=== PATIENT | male | born 1995 ===

== ENCOUNTER 2020-03-19 01:54 | Emergency (ER) | payer MEDICAID, OTHER ==
[2020-03-19] MEDS ORDERED: Diphtheria,Pertussis(Acell),Tetanus Vaccine 0.5 ML Syringe IM ONE (02:19)
[2020-03-19] MEDS ORDERED: ceFAZolin 2 GM in Premix Bag 1 BAG IV STA (02:20)
[2020-03-19] MEDS ORDERED: HYDROmorphone 0.5 MG/0.5 ML Syringe IVPUSH ONE ×3 (02:21→06:52)
--- NOTE | 2020-03-19 02:28 | EDM.PDOC ---
ED HPI GENERAL MEDICAL PROBLEM - General Chief Complaint: Trauma Stated Complaint: RUN OVER BY BULL HEAD INJURY AND MISSING A FINGER Time Seen by Provider: 03/19/20 02:04 Source of Information: Reports: Patient History Limitations: Reports: No Limitations - History of Present Illness INITIAL COMMENTS - FREE TEXT/NARRATIVE: A trauma alert was called for this patient. Mr. Yost is a very pleasant 24-year-old man with no chronic medical problems and no past surgical history, who now presents the ED after being struck and injured by a bull around 00:30. 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 He was not on the bull at the time. He states that he was told that he was knocked unconscious for "not that long". He has an amputation to most of his right 5th finger. He denies any other injuries. The patient states that after his injury, he drank up to half of a fifth of fireball whiskey. He also acknowledges smoking marijuana on a near-daily basis. He denies post injury nausea or vomiting, denies any report of having seizure- like activity. He is not on an anticoagulant. Here in the ED, the patient's initial BP is found to be modestly elevated at 156/97, with a tachycardia of 103 bpm. He is afebrile, saturating 100% on room air. Other than tonight's injuries, the patient denies having a recent fever, chills, sore throat, ear pain, nasal or sinus congestion, cough, dyspnea, chest pain, palpitations, nausea, vomiting, constipation, diarrhea, abdominal pain, urinary symptoms, recent weight gain or weight loss, recent bloody bowel movements or black bowel movements, recent joint aches, headaches, or rashes. The patient does not have a PCP. He does not believe that he has ever had a tetanus vaccination, but agreed to receive one here today. Right Finger-Little Pain Score (Numeric/FACES): 5 - Related Data Allergies Allergy/AdvReac Type Severity Reaction Status Date / Time No Known Allergies Allergy Verified 03/19/20 02:11 Past Medical History - Past Health History Medical/Surgical History: Denies Medical/Surgical History Social & Family History - Tobacco Use Smoking Status *Q: Current Every Day Smoker Years of Tobacco use: 5 Packs/Tins Daily: 0.4 - Alcohol Use Alcohol Use History: Yes Alcohol Use Frequency: Socially - Recreational Drug Use Recreational Drug Use: Yes Drug Use in Last 12 Months: Yes Recreational Drug Type: Reports: Marijuana/Hashish (smokes near-daily) - Living Situation & Occupation Living situation: Reports: Single, with Family Occupation: Employed ([employer] + [employer]) Review of Systems - Review of Systems Review Of Systems: Comprehensive ROS is negative, except as noted in HPI. ED EXAM, GENERAL - Physical Exam Exam: See Below Exam Limited By: No Limitations General Appearance: Alert, WD/WN, No Apparent Distress Eye Exam: Bilateral Eye: EOMI, Normal Inspection, PERRL Ears: Normal External Exam, Normal Canal, Hearing Grossly Normal, Normal TMs Nose: Normal Inspection, Normal Mucosa, No Blood Throat/Mouth: Normal Inspection, Normal Lips, Normal Teeth, Normal Gums, Normal Oropharynx, Normal Voice, No Airway Compromise Head: Normocephalic, Other (Large hematoma/swelling over the left forehead) Neck: Normal Inspection, Supple, Non-Tender, Full Range of Motion Respiratory/Chest: No Respiratory Distress, Lungs Clear, Normal Breath Sounds, No Accessory Muscle Use, Chest Non-Tender Cardiovascular: Normal Peripheral Pulses, Regular Rate, Rhythm, No Edema, No Gallop, No JVD, No Murmur, No Rub Peripheral Pulses: 3+: Radial (L), Radial (R) GI/Abdominal: Normal Bowel Sounds, Soft, Non-Tender, No Organomegaly, No Distention, No Abnormal Bruit, No Mass Back Exam: Normal Inspection, Full Range of Motion, NT Extremities: No Pedal Edema, Normal Capillary Refill, Other (There is an approximately 2 cm jagged laceration to the ulnar aspect of the proximal phalange of the right 4th finger. The patient is flexing the finger, and there may be a deformity to the proximal 4th phalange. Normal sensation to the right 4th finger. The right 5th finger is amputated at the PIP joint, with the articular surface of the proximal phalange clearly visible. The wounds to both fingers are bleeding.) Neurological: Alert, Oriented, CN II-XII Intact, Normal Cognition, No Motor/Sensory Deficits Psychiatric: Normal Affect Skin Exam: Warm, Dry, Intact, Normal Color, No Rash Course - Vital Signs Last Recorded V/S: Last Vital Signs Temp 36.6 C 03/19/20 02:44 Pulse 95 03/19/20 02:44 Resp 18 03/19/20 02:44 BP 152/99 H 03/19/20 02:44 Pulse Ox 100 03/19/20 02:44 - Orders/Labs/Meds Orders: Active Orders 24 hr Category Date Time Status Hand Comp Min 3V Rt [CR] Stat Exams 03/19/20 02:18 Taken Head wo Cont [CT] Stat Exams 03/19/20 02:18 Taken Labs: Laboratory Tests 03/19/20 Range/Units 06:40 SARS-CoV-2 RNA (JUSTIN) Negative (NEGATIVE) Meds: Medications Discontinued Medications Generic Name Dose Route Start Last Admin Trade Name Freq PRN Reason Stop Dose Admin Bupivacaine HCl 10 ml 03/19/20 06:32 Sensorcaine-Mpf 0.5% INJECT 03/19/20 06:33 ONETIME ONE Diphtheria/Tetanus/Acell Pertussis 0.5 ml 03/19/20 02:19 03/19/20 02:38 Adacel IM 03/19/20 02:20 0.5 ml .ONCE ONE Administration Hydromorphone HCl 0.5 mg 03/19/20 02:21 03/19/20 02:38 Dilaudid IVPUSH 03/19/20 02:22 0.5 mg ONETIME ONE Administration Hydromorphone HCl 0.5 mg 03/19/20 03:58 03/19/20 04:36 Dilaudid IVPUSH 03/19/20 03:59 0.5 mg ONETIME ONE Administration Hydromorphone HCl 0.5 mg 03/19/20 06:52 03/19/20 07:14 Dilaudid IVPUSH 03/19/20 06:53 0.5 mg ONETIME ONE Administration Cefazolin Sodium/Dextrose 2 gm 50 mls @ 100 mls/hr 03/19/20 02:20 03/19/20 02:40 / Premix IV 03/19/20 02:49 100 mls/hr ONETIME STA Administration Lidocaine HCl 10 ml 03/19/20 06:32 Xylocaine 1% INJECT 03/19/20 06:33 ONETIME ONE - Re-Assessments/Exams Free Text/Narrative Re-Assessment/Exam: 03/19/20 02:22 As above, the patient was struck by a bull earlier tonight, sustaining a head injury and brief loss of consciousness. His neurologic examination is normal, however, based on the mechanism, I believe he meets NICE criterion for an emergency CT of the head without contrast. He also has a laceration and possible deformity to his right 4th finger, and an amputation of his right 5th finger at the PIP joint. I have ordered x-rays of the right hand to evaluate. No other apparent injuries. I have ordered 2 g of IV Ancef and IV Dilaudid, along with a tetanus vaccination. 03/19/20 03:46 CT of the head without contrast is read by [facility] as: 1. Left frontal scalp and left preseptal hematoma. 2. No acute intracranial abnormality. 3-view radiographs of the right hand are read by the read as "Amputation through the proximal interphalangeal joint of the left 5th finger. Case discussed with Reina at [facility] at 03:10. Case then discussed with Dr. Mccullough, Orthopedic Surgeon at [facility], at 03:15. He recommended that we transfer the patient to their ED. Case then discussed with Dr. Tristan, Emergency Physician at [facility], at 03:15. He accepted the patient for transfer to their ED, but requested that I suture the laceration to the right 4th finger before I transfer the patient. 03/19/20 03:58 CT and x-ray results, and my conversations with the Orthopedic Surgeon and Emergency Physician discussed the patient. Unfortunately, we are extremely busy in the ED this morning, and it will be some time before I can suture his finger. We will transfer him after that. The patient is agreeable. 03/19/20 04:52 CT of the head and right hand x-ray images have been pushed to [facility]. 03/19/20 06:34 The patient informs me that he will get to [facility] by private vehicle. The swab for the SARS-CoV-2 virus has not yet been collected. 03/19/20 06:40 I went to suture the laceration on the ulnar aspect of the patient's right 4th finger, and the patient asked me why I was sewing that, instead of the Surgeon in [place]. I explained that the Emergency Physician at [place] requested that I suture that wound prior to transfer. The patient stated that he refused, that he would prefer to have the suturing of his right 4th finger laceration as well as repair of his right 5th finger amputation performed at the same time with one anesthesia, instead of 2 separate procedures. That being the case, I will prepare the patient for transfer by private vehicle. His wounds will be dressed with Xeroform. He will be instructed to go directly to the [facility] ED, and remain NPO. 03/19/20 07:56 The patient's swab for the SARS-CoV-2 virus has returned negative. 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 Work-up in the ER included a CT scan of your head and x-rays of your right hand. The CT scan of your head found soft tissue swelling, but no intracranial injury. The x-rays of your right hand confirmed an amputation of part of your right pinky finger, but no broken bones. You are to go directly to the emergency room at [facility]. You are not to stop along the way or eat anything. Sepsis Event Note (ED) - Evaluation Sepsis Screening Result: No Definite Risk - Focused Exam Vital Signs: Vital Signs Temp Pulse Resp BP Pulse Ox 03/19/20 02:44 36.6 C 95 18 152/99 H 100 03/19/20 02:05 36.8 C 103 H 20 156/97 H 100 - My Orders Last 24 Hours: My Active Orders 03/19/20 02:18 Hand Comp Min 3V Rt [CR] Stat Head wo Cont [CT] Stat - Assessment/Plan Last 24 Hours: My Active Orders 03/19/20 02:18 Hand Comp Min 3V Rt [CR] Stat Head wo Cont [CT] Stat
[2020-03-19] MEDS ORDERED: Bupivacaine 0.5% 10 ML SDV INJECT ONE (06:32)
[2020-03-19] MEDS ORDERED: Lidocaine 1% 10 ML MDV INJECT ONE (06:32)
--- NOTE | 2020-04-13 08:53 | CR ---
PROCEDURE INFORMATION: Exam: XR Right Hand Exam date and time: 03/19/2020 2:08 AM Age: 24 years old Clinical indication: Injury or trauma; Other: Lac of 4th finger, amputation distal 5th finger; Amputation, traumatic; Right little finger TECHNIQUE: Imaging protocol: XR Right hand. Views: 3 or more views. COMPARISON: No relevant prior studies available. FINDINGS: Bones/joints: Amputation through the proximal interphalangeal joint of the 5th finger. Laceration of the dorsal aspect of the proximal ring finger with a small cortical defect involving the distal diaphysis of the proximal phalanx. Soft tissues: Normal. IMPRESSION: Amputation through the proximal interphalangeal joint of the 5th finger. Small cortical defect of the distal diaphysis of the dorsal aspect of the proximal phalanx of the ring finger. Thank you for allowing us to participate in the care of your patient. Dictated and Authenticated by: uY Larios MD 04/12/2020 8:38 PM Central Time ([place] & [place]) RANJEET
--- NOTE | 2020-04-13 08:54 | CT ---
Addendum created by Yu Larios MD on 04/12/2020 8:52 PM Central Time ([place] & [place]): Findings discussed with the referring clinician. Initial Report created on 04/12/2020 8:45 PM Central Time ([place] & [place]): PROCEDURE INFORMATION: Exam: CT Head Without Contrast Exam date and time: 03/19/2020 2:17 AM Age: 24 years old Clinical indication: Injury or trauma; Other: Struck by a bull; Work related; Blunt trauma (contusions or hematomas); Consciousness not specified TECHNIQUE: Imaging protocol: Computed tomography of the head without contrast. COMPARISON: No relevant prior studies available. FINDINGS: Brain: Possible tiny focus of subdural hemorrhage adjacent to the medial left frontal lobe, series 2, image 15, series 4 image 11. This could also represent a small focus of artifact. It is asymmetric however. Follow-up CT recommended. Cerebral ventricles: No ventriculomegaly. Bones/joints: Unremarkable. No acute fracture. Paranasal sinuses: Visualized sinuses are unremarkable. No fluid levels. Mastoid air cells: Visualized mastoid air cells are well aerated. Orbital cavity: Left preseptal hematoma extending into the left frontal scalp. Soft tissues: Unremarkable. IMPRESSION: 1. Possible tiny subdural hematoma in the left frontal region, clinical correlation and follow-up CT recommended. 2. Left preseptal hematoma extends into the left frontal scalp. Thank you for allowing us to participate in the care of your patient. Dictated and Authenticated by: Yu Larios MD 04/12/2020 8:45 PM Central Time ([place] & [place]) [email or web address]
== END 2020-03-19 07:26 ==
LOC: JD.ED 01:54
DX: S68.626A Partial traumatic transphalangeal amputation of right little finger, initial encounter (principal); S61.214A Laceration without foreign body of right ring finger without damage to nail, initial encounter; S00.83XA Contusion of other part of head, initial encounter; S09.90XA Unspecified injury of head, initial encounter; Z23 Encounter for immunization; F17.210 Nicotine dependence, cigarettes, uncomplicated; Z20.828 Contact with and (suspected) exposure to other viral communicable diseases; W55.22XA Struck by cow, initial encounter
CPT/HCPCS: 70450; 73130; 87635; 90471; 90715; 96365; 96375; 96376; 99285; J0690; J1170; U0002